=== PATIENT | male | born 1995 | race Caucasian/White ===

== ENCOUNTER 2017-12-30 02:35 | Emergency (ER) | payer OTHER ==
[2017-12-30 03:18] VITALS: TEMP 98.9; BMI 25.1
[2017-12-30] MEDS ORDERED: SODIUM CHLORIDE 1,000 ML IV STA (04:02)
[2017-12-30] MEDS ORDERED: FAMOTIDINE 20 MG/50 ML IVPB 20 MG/50 ML MG IVPB ONE ×2 (04:02→04:26)
--- NOTE | 2017-12-30 04:12 | PDOC ---
History of Present Illness - General Chief Complaint: Chest Pain Stated Complaint: PAIN Time Seen by Provider: 12/30/17 03:33 History Source: Patient Exam Limitations: No Limitations Past History - Past Medical History Allergies/Adverse Reactions: Allergies Allergy/AdvReac Type Severity Reaction Status Date / Time No Known Allergies Allergy Verified 12/30/17 02:51 Home Medications: Ambulatory Orders NK [No Known Home Medication] 12/30/17 - Suicide/Smoking/Psychosocial Hx Smoking History: Never smoked Have you smoked in the past 12 months: No Information on smoking cessation initiated: No Hx Alcohol Use: No Drug/Substance Use Hx: No *Physical Exam - Vital Signs Last Vital Signs Temp Pulse Resp BP Pulse Ox 98.9 F 61 20 121/72 99 12/30/17 02:38 12/30/17 02:38 12/30/17 02:38 12/30/17 02:38 12/30/17 02:38 ED Treatment Course - LABORATORY CBC & Chemistry Diagram: 12/30/17 03:45 12/30/17 03:45 *DC/Admit/Observation/Transfer Diagnosis at time of Disposition: Atypical chest pain - Discharge Dispostion Disposition: HOME Condition at time of disposition: Stable Decision to Admit order: No - Referrals Referrals: ON STAFF,NOT [Primary Care Provider] - Hector Terry MD [Staff Physician] - - Patient Instructions Printed Discharge Instructions: DI for Atypical Chest Pain Additional Instructions: Your lab work, EKG and Chest x-ray are normal today Please keep a diary of when you get chest pain You may have had chest pain d/t anxiety or reflux Follow up with your primary care doctor this week Return to the ED if you have chest pain, shortness of breath, palpitations or if you have any new or worsening symptoms - Post Discharge Activity
[2017-12-30 05:07] LABS: BASO % 1.5 % (0-2.0); EOS % 8.8 % (0-4.5); HEMATOCRIT 46.8 % (35.4-49); LYMPH % 35.4 % (8-40); MCHC 34.1 g/dl (32.0-35.9); MEAN CELL VOLUME 88.1 fl (80-96); MEAN PLT VOLUME 8.4 fl (7.5-11.1); NEUT % 45.3 % (42.8-82.8); PLATELET COUNT 270 K/MM3 (134-434); RBC 5.31 M/mm3 (4.00-5.60); WHITE BLOOD COUNT 5.8 K/mm3 (4.0-10.0)
[2017-12-30 05:08] LABS: URINE APPEARANCE CLOUDY; URINE BILIRUBIN NEGATIVE (<2.0 mg/dL); URINE COLOR YELLOW; URINE GLUCOSE (UA) NEGATIVE (NEGATIVE); URINE KETONE NEGATIVE (NEGATIVE); URINE LEUK ESTERASE NEGATIVE (NEGATIVE); URINE NITRITE NEGATIVE (NEGATIVE); URINE PROTEIN NEGATIVE (NEGATIVE); URINE UROBILINOGEN NEGATIVE mg/dL (0.2-1.0)
[2017-12-30 05:21] VITALS: BP 122/74; PULSE 58
[2017-12-30 05:47] LABS: INR 1.04 (0.83-1.09); PROTHROMBIN TIME (PATIENT) 11.8 SEC (9.7-13.0)
[2017-12-30 05:58] LABS: ALBUMIN 3.9 g/dl (3.4-5.0); ANION GAP 4 MMOL/L (8-16); BILIRUBIN,TOTAL 1.4 mg/dL (0.2-1); BLOOD UREA NITROGEN 12 mg/dL (7-18); CALCIUM 8.7 mg/dL (8.5-10.1); CHLORIDE 106 mmol/L (98-107); CO2 30 mmol/L (21-32); CREATININE 1.1 mg/dL (0.55-1.3); GLUCOSE,RANDOM 87 mg/dL (74-106); SGOT/AST 16 U/L (15-37); SGPT/ALT 32 U/L (13-61); SODIUM 140 mmol/L (136-145)
[2017-12-30 06:06] LABS: ALK PHOS 55 U/L (45-117)
--- NOTE | 2017-12-30 13:37 | EKG ---
Test Reason : Blood Pressure : / mmHG Vent. Rate : 054 BPM Atrial Rate : 054 BPM P-R Int : 160 ms QRS Dur : 084 ms QT Int : 388 ms P-R-T Axes : 029 057 038 degrees QTc Int : 367 ms SINUS BRADYCARDIA OTHERWISE NORMAL ECG NO PREVIOUS ECGS AVAILABLE Confirmed by JOSIAH DONWS, BILLIE ([id number]) on 12/30/2017 1:37:35 PM Referred By: Confirmed By:BILLIE RAHMAN MD
== END 2017-12-30 07:08 | disposition home or self-care (01) ==
LOC: JER 02:35
PROC: 3E033GC Introduction of Other Therapeutic Substance into Peripheral Vein, Percutaneous Approach (ICD-10-PCS; principal; 2017-12-30)
PROC: 3E0337Z Introduction of Electrolytic and Water Balance Substance into Peripheral Vein, Percutaneous Approach (ICD-10-PCS; 2017-12-30)
DX: R07.89 Other chest pain (principal)
CPT/HCPCS: 36415; 71046-TC-FY; 80053; 81003; 82550; 83690; 84443; 84484; 85025; 85610; 87086; 93005; 93010; 96361; 96365; 99284-25; J7030

== ENCOUNTER 2024-03-16 16:57 | Inpatient (IN) | payer BC ==
[2024-03-16 18:12] LABS: HEMATOCRIT 42.1 % (35.4-49); HEMOGLOBIN 13.5 GM/dL (11.7-16.9); MCH 27.9 pg (25.7-33.7); MEAN CELL VOLUME 87.2 fl (80-96); MEAN PLT VOLUME 7.5 fl (7.5-11.1); PLATELET COUNT 416 10^3/uL (134-434); RBC 4.83 M/mm3 (4.00-5.60); RDW 14.3 % (11.9-15.9); WHITE BLOOD COUNT 13.5 K/mm3 (4.0-10.0)
[2024-03-16 18:32] LABS: POTASSIUM 3.9 mmol/L (3.5-5.1)
[2024-03-16 18:34] LABS: CALCIUM 9.6 mg/dL (8.5-10.1)
[2024-03-16 18:35] LABS: ALBUMIN 3.6 g/dl (3.4-5.0); BLOOD UREA NITROGEN 11.8 mg/dL (7-18)
[2024-03-16 18:37] LABS: ANISOCYTOSIS 0; MACROCYTOSIS 0
[2024-03-16 18:38] LABS: CREATININE 1.1 mg/dL (0.55-1.3); INR 1.1 (0.83-1.09); PROTHROMBIN TIME (PATIENT) 12.6 SEC (9.7-13.0)
[2024-03-16 18:39] LABS: BILIRUBIN,TOTAL 0.7 mg/dL (0.2-1)
[2024-03-16 18:40] LABS: TOT PROT 7.8 g/dl (6.4-8.2)
[2024-03-16 18:41] LABS: ACTIVATED PTT 36.4 SECONDS (25.2-36.5)
[2024-03-16] MEDS: LACTATED RINGERS SOLUTION 1000 ML INFUS.BAG IV ONE (18:59)
[2024-03-16 20:12] LABS: ERYTHROCYTE SEDIMENTATION RATE 37 mm/hr (0-10)
[2024-03-16] MEDS: CIPROFLOXACIN 400 MG/D5W 400 MG/200 ML IVPB IVPB ONE (22:06)
[2024-03-17 00:55] VITALS: BMI 22.9
[2024-03-17 01:01] LABS: HIV INTERPRETATION NEGATIVE (NEGATIVE)
[2024-03-17 08:20] LABS: BASO % 0.7 % (0-2.0); EOS % 6.8 % (0-4.5); HEMATOCRIT 39.5 % (35.4-49); HEMOGLOBIN 13.2 GM/dL (11.7-16.9); LYMPH % 23.1 % (8-40); MCH 28.6 pg (25.7-33.7); MCHC 33.3 g/dl (32.0-35.9); MEAN CELL VOLUME 85.8 fl (80-96); MEAN PLT VOLUME 7.7 fl (7.5-11.1); MONO % 14.9 % (3.8-10.2); NEUT % 54.5 % (42.8-82.8); PLATELET COUNT 400 10^3/uL (134-434); RBC 4.61 M/mm3 (4.00-5.60); RDW 14.4 % (11.9-15.9); WHITE BLOOD COUNT 7.9 K/mm3 (4.0-10.0)
[2024-03-17 08:31] LABS: POTASSIUM 3.8 mmol/L (3.5-5.1)
[2024-03-17 08:32] LABS: CALCIUM 9.2 mg/dL (8.5-10.1)
[2024-03-17 08:33] LABS: ALBUMIN 3.1 g/dl (3.4-5.0); BLOOD UREA NITROGEN 8.8 mg/dL (7-18)
[2024-03-17 08:36] LABS: CREATININE 1.1 mg/dL (0.55-1.3)
[2024-03-17 08:38] LABS: BILIRUBIN,TOTAL 0.9 mg/dL (0.2-1)
[2024-03-17] MEDS: methylPREDNISolone NA SUCC 40 MG/1 ML VIAL IVPUSH SCH (11:04)
[2024-03-17] MEDS: PANTOPRAZOLE 40 MG TABLET PO SCH (11:04)
[2024-03-17] MEDS: SIMETHICONE 80 MG TAB.CHEW (FP) PO SCH (13:25)
[2024-03-18] MEDS: ACETAMINOPHEN 325 MG TABLET (FP) PO PRN (06:19)
[2024-03-18 09:03] LABS: BASO % 0.6 % (0-2.0); EOS % 2.3 % (0-4.5); HEMATOCRIT 37.1 % (35.4-49); HEMOGLOBIN 12.1 GM/dL (11.7-16.9); LYMPH % 17.8 % (8-40); MCH 28.2 pg (25.7-33.7); MCHC 32.7 g/dl (32.0-35.9); MEAN CELL VOLUME 86.1 fl (80-96); MEAN PLT VOLUME 7.8 fl (7.5-11.1); NEUT % 64.3 % (42.8-82.8); PLATELET COUNT 393 10^3/uL (134-434); RDW 14.4 % (11.9-15.9); WHITE BLOOD COUNT 9.3 K/mm3 (4.0-10.0)
[2024-03-18 09:25] LABS: POTASSIUM 3.9 mmol/L (3.5-5.1)
[2024-03-18 09:35] LABS: ALBUMIN 3.1 g/dl (3.4-5.0)
[2024-03-18 09:36] LABS: BILIRUBIN,TOTAL 0.7 mg/dL (0.2-1); TOT PROT 6.8 g/dl (6.4-8.2)
[2024-03-18 10:05] LABS: BLOOD UREA NITROGEN 9.3 mg/dL (7-18)
[2024-03-19 07:36] LABS: BASO % 0.9 % (0-2.0); EOS % 3.1 % (0-4.5); HEMOGLOBIN 12.1 GM/dL (11.7-16.9); LYMPH % 26.4 % (8-40); MCH 28.4 pg (25.7-33.7); MCHC 32.8 g/dl (32.0-35.9); MEAN CELL VOLUME 86.6 fl (80-96); MEAN PLT VOLUME 7.7 fl (7.5-11.1); MONO % 13.9 % (3.8-10.2); NEUT % 55.7 % (42.8-82.8); PLATELET COUNT 382 10^3/uL (134-434); RBC 4.27 M/mm3 (4.00-5.60); RDW 14.5 % (11.9-15.9); WHITE BLOOD COUNT 8.2 K/mm3 (4.0-10.0)
[2024-03-19 07:39] LABS: POTASSIUM 3.9 mmol/L (3.5-5.1)
[2024-03-19 07:41] LABS: CALCIUM 9.1 mg/dL (8.5-10.1)
[2024-03-19 07:42] LABS: BLOOD UREA NITROGEN 8.5 mg/dL (7-18)
[2024-03-19 07:45] LABS: CREATININE 1.1 mg/dL (0.55-1.3)
[2024-03-19 07:46] LABS: BILIRUBIN,TOTAL 0.6 mg/dL (0.2-1)
[2024-03-19 07:47] LABS: TOT PROT 6.7 g/dl (6.4-8.2)
[2024-03-19 10:48] LABS: ERYTHROCYTE SEDIMENTATION RATE 31 mm/hr (0-10)
[2024-03-19 22:45] VITALS: RESP 18
[2024-03-20] MEDS: predniSONE 20 MG TABLET (UD) PO SCH (09:10)
[2024-03-20] MEDS: CALCIUM 250MG/VIT-D 125 UNITS 1 COMBO TABLET PO SCH (10:22)
[2024-03-20 13:45] VITALS: BP 114/74; PULSE 91; TEMP 98.2
== END 2024-03-20 16:19 | disposition home or self-care (01) | DRG 392 ==
LOC: JER 16:57 → JERBED 21:05 → J7W 03-17 00:04
PROVIDERS: ADMIT Internal Medicine; ATTEND Internal Medicine
DX: K52.89 Other specified noninfective gastroenteritis and colitis (principal); K51.90 Ulcerative colitis, unspecified, without complications; R63.4 Abnormal weight loss; Z68.22 Body mass index [BMI] 22.0-22.9, adult; R19.7 Diarrhea, unspecified
CPT/HCPCS: 36415; 74177-TC; 80053; 82272; 83690; 83735; 85025; 85610; 85651; 85730; 86140; 86803; 86850; 86900; 86901; 87040; 87045; 87046; 87324; 87389; 87449; 93005; 93010; 99285-25; Q9967